=== PATIENT | female | born 1985 ===

== ENCOUNTER 2017-02-10 09:20 | Emergency (ER) | payer OTHER ==
[~2017-02-10] VITALS: Ht 157.5 cm; Wt 63.5 kg
--- NOTE | ~2017-02-10 | US98 ---
[facility] A Service of [facility] [place] RADIOLOGY TEXT RESULTS PATIENT: NADIA BRADEN LOCATION: [facility] : 87 UNIT #: [id number] AGE: [address]: Fidelina Ramires APRN SEX: F ORDER DR: [id number] [facility] [address] [place], [place] [address] [id number] E MR#: [id number] Acc #: [id number] NAME: NADIA BRADEN : 1985 SEX: F STUDY DATE/TIME: 02/10/2017 10:27 UNIT: TX ROOM: STUDY DESCRIPTION: US Pelvic Non-OB Complete Attending Physician: Fidelina Ramires A.P.R.N. Ordering Physician: Ed Doctor [id number] [facility] Primary Care Physician: Primary Care Physician No MEDICAL IMAGING REPORT This report is preliminary unless electronic signature is present EXAM Pelvic ultrasound 02/10 INDICATIONS Spotting with tissue protruding through vagina for about 7 weeks. FINDINGS Transabdominal and transvaginal imaging is performed of the pelvis in multiple planes. Transvaginal imaging is performed for better evaluation of the endometrium adnexa. No comparison. The uterus measures about 8.1 x 3.0 x 3.7 cm. Myometrial echotexture is homogeneous. Endometrial stripe is normal at 8 mm. Both ovaries demonstrate perfusion by Doppler. There are bilateral ovarian follicles. No adnexal masses are seen. Nabothian cyst noted in the cervix. IMPRESSION Essentially normal pelvic ultrasound. The uterus and endometrial stripe are normal. The ovaries show follicles but are otherwise unremarkable. Both demonstrate perfusion by Doppler. There is a small nabothian cyst in the cervix. Dictated by... Brian López Jr., M.D. THIS IS AN ELECTRONICALLY VERIFIED REPORT Brian López Jr., M.D. at 02/11/2017 4:34 PM CRYS/tracee TD: 02/10/2017 14:27 JOB #: [id number] [facility] A Service of [facility] RADIOLOGY TEXT RESULTS PATIENT: NADAI BRADEN LOCATION: [facility] : [birth year] UNIT #: [id number] AGE: [address]: Fidelina Ramires APRN SEX: F ORDER DR: MEDICAL IMAGING REPORT Page 1 of 1 COPY
[2017-02-10 10:18] LABS: URINE SOURCE CATH
[2017-02-10 10:21] LABS: BASOPHIL% 0.4 % (0-2.5); EOSINOPHIL# 0.1 X10e3 (0-0.7); EOSINOPHIL% 1.1 % (0.0-7.0); HEMATOCRIT 41.6 % (35.0-45.0); HEMOGLOBIN 13.9 gm/dL (12.0-16.0); LYMPHOCYTE# 1.9 X10e3 (1.0-3.5); LYMPHOCYTE% 29.9 % (17.0-45.0); MEAN CELL VOLUME 86.4 FL (83-96); MEAN CORPUSCULAR HEMOGLOBIN 28.9 PG (28-34); MEAN CORPUSCULAR HGB CONC 33.4 g/dL (30-36); MEAN PLATELET VOLUME 7.7 FL (6.5-11.5); MONOCYTE# 0.3 X10e3 (0-1.0); NEUTROPHIL# 4.1 X10e3 (1.5-7.1); NEUTROPHIL% 63.6 % (40-75); PLATELET COUNT 340 X10e3 (140-420); RED BLOOD COUNT 4.81 X10e (3.90-5.30); RED CELL DISTRIBUTION WIDTH 13.3 % (11.0-15.5); WHITE BLOOD COUNT 6.4 X10e3 (4.0-10.5)
[2017-02-10 10:23] LABS: URINE APPEARANCE CLEAR; URINE BILIRUBIN NEG (NEG); URINE BLOOD NEG (NEG); URINE COLOR YELLOW; URINE GLUCOSE NEG (NEG); URINE KETONE NEG (NEG); URINE LEUKOCYTE ESTERASE NEG (NEG); URINE NITRATE NEG (NEG); URINE PH 7.5 (5-8); URINE PROTEIN NEG (NEG); URINE SPECIFIC GRAVITY 1.005 (1.003-1.035); URINE UROBILINOGEN 0.2 MG/DL (NEG)
[2017-02-10 10:23] LABS: DIFF IND NO
[2017-02-10 10:27] LABS: CULTURE INDICATED? NO
[2017-02-10 10:50] LABS: CALCIUM SERUM 9.4 mg/dL (8.4-10.2); CREATININE SERUM 0.6 mg/dL (0.6-1.4); GLOM FILT RATE Estimated 122.3 mL/min (>60); POTASSIUM 4.1 mmol/L (3.5-5.1)
[2017-02-11 23:41] LABS: CHLAMYDIA TRACH Not Detected (Not Detected); N GONOR Not Detected (Not Detected)
== END 2017-02-10 12:30 | disposition home or self-care (01) ==
LOC: CFTX 09:20 → CED 09:20 → CFTX 10:09
PROVIDERS: Nurse Practitioner
DX: N88.8 Other specified noninflammatory disorders of cervix uteri (principal)
CPT/HCPCS: 36415; 76830; 76856; 80048; 81003; 84703; 85025; 87491; 87591; 87808; 87905; 99283

== ENCOUNTER 2017-02-25 20:55 | Emergency (ER) | payer OTHER ==
[~2017-02-25] VITALS: Ht 157.5 cm; Wt 64.0 kg
[2017-02-25 22:17] LABS: BASOPHIL% 0.3 % (0-2.5); EOSINOPHIL# 0.2 X10e3 (0-0.7); EOSINOPHIL% 2.1 % (0.0-7.0); HEMATOCRIT 37.1 % (35.0-45.0); HEMOGLOBIN 12.8 gm/dL (12.0-16.0); LYMPHOCYTE# 2.7 X10e3 (1.0-3.5); LYMPHOCYTE% 26.8 % (17.0-45.0); MEAN CELL VOLUME 85.1 FL (83-96); MEAN CORPUSCULAR HEMOGLOBIN 29.4 PG (28-34); MEAN CORPUSCULAR HGB CONC 34.5 g/dL (30-36); MEAN PLATELET VOLUME 7.3 FL (6.5-11.5); MONOCYTE# 0.6 X10e3 (0-1.0); MONOCYTE% 5.7 % (3.0-12.0); NEUTROPHIL# 6.6 X10e3 (1.5-7.1); NEUTROPHIL% 65.1 % (40-75); PLATELET COUNT 337 X10e3 (140-420); RED BLOOD COUNT 4.35 X10e (3.90-5.30); RED CELL DISTRIBUTION WIDTH 13.3 % (11.0-15.5); WHITE BLOOD COUNT 10.1 X10e3 (4.0-10.5)
[2017-02-25 22:23] LABS: DIFF IND NO
[2017-03-01 14:54] LABS: CHLAMYDIA TRACH Not Detected (Not Detected); N GONOR Not Detected (Not Detected)
== END 2017-02-25 22:45 | disposition home or self-care (01) ==
LOC: CED 20:55 → CFTX 20:55
PROVIDERS: Nurse Practitioner Family
DX: D41.4 Neoplasm of uncertain behavior of bladder (principal); K29.70 Gastritis, unspecified, without bleeding
CPT/HCPCS: 36415; 84703; 85025; 87491; 87591; 87808; 87905; 99284